=== PATIENT | male | born 1960 | race Caucasian/White ===

== ENCOUNTER 2016-11-15 10:12 | Emergency (ER) | payer MEDICAID ==
[2016-11-15] MEDS ORDERED: KETOROLAC 60 MG/2 ML VIAL IM STA (10:38)
[2016-11-15] MEDS ORDERED: DEXAMETHASONE 10 MG/ML VIAL PO STA (10:39)
[2016-11-15] MEDS ORDERED: DEXAMETHASONE 10 MG/ML VIAL ONE (10:41)
[2016-11-15] MEDS ORDERED: CHERRY SYRUP 10 ML UDC PO ONE (10:41)
[2016-11-15] MEDS ORDERED: KETOROLAC 60 MG/2 ML VIAL ONE (10:41)
--- NOTE | 2016-11-15 10:41 | ED Physician Documentation ---
PD HPI BACK PAIN - Stated complaint Stated Complaint: BACK INJURY - Chief complaint Chief Complaint: Back Pain - History obtained from History obtained from: Patient - History of Present Illness Timing - onset: Yesterday Timing - details: Still present Location: Lower Quality: Pain Associated symptoms: No: Fever, Weakness, Numbness, Incontinent of urine Worsened by: Movement, Twisting Contributing factors: Lifting Similar symptoms before: Diagnosis (History of similar symptoms, with "bulging discs.") - Additional information Additional information: The patient is a 56-year-old male who presents with low back pain. The pain started yesterday after carrying a heavy roll of carpet upstairs. He felt a "pop " in his lower back. He reports history of similar symptoms occasionally in the past. He states he has been diagnosed with "2 bulging discs." He denies fever, numbness or weakness, or urinary incontinence. Review of Systems Constitutional: denies: Fever Nose: denies: Congestion Throat: denies: Sore throat Cardiac: denies: Chest pain / pressure Respiratory: denies: Dyspnea GI: denies: Abdominal Pain, Nausea, Vomiting : denies: Dysuria, Incontinent Skin: denies: Rash Musculoskeletal: reports: Back pain. denies: Neck pain Neurologic: denies: Focal weakness, Numbness, Headache PD PAST MEDICAL HISTORY - Past Medical History Past Medical History: Yes Neuro: None Endocrine/Autoimmune: None Other Past Medical History: "bulging discs" - Past Surgical History Past Surgical History: Yes Ortho: Knee replacement - Present Medications Home Medications: Ambulatory Orders Medication Instructions Recorded Confirmed Cyclobenzaprine [Flexeril] 10 mg PO TID PRN #20 tablet 11/15/16 HYDROcod/ACETAM 5/325 [[place] 5/325] 1 - 2 ea PO Q6H PRN #20 tablet 11/15/16 - Allergies Allergies/Adverse Reactions: Allergies Allergy/AdvReac Type Severity Reaction Status Date / Time No Known Drug Allergies Allergy Verified 11/15/16 10:19 - Social History Does the pt smoke?: No Smoking Status: Never smoker Does the pt drink ETOH?: Yes Does the pt have substance abuse?: No - Immunizations Immunizations are current?: Yes - POLST Patient has POLST: No PD ED PE NORMAL - Vitals Vital signs reviewed: Yes (mild hypertension initia) - General General: Well developed/nourished - HEENT HEENT: Atraumatic - Neck Neck: No bony TTP - Cardiac Cardiac: RRR - Respiratory Respiratory: No respiratory distress, Clear bilaterally - Abdomen Abdomen: Soft, Non tender - Back Back: No CVA TTP, Other (There is tenderness to palpation in the lower lumbar region and paralumbar musculature bilaterally.) - Derm Derm: No rash - Extremities Extremities: No edema, No calf tenderness / cord, Other (Straight leg raise test is negative bilaterally.) - Neuro Neuro: Alert and oriented X 3, No motor deficit, No sensory deficit, Other ( Deep tendon reflexes are 2+ and equal bilaterally at the patellar and Achilles tendons.) Results - Vitals Vitals: Oxygen O2 Source Room air PD MEDICAL DECISION MAKING - ED course Complexity details: re-evaluated patient, considered differential, d/w patient ED course: The patient's presentation of low back pain is most consistent with lumbar strain. His presentation does not suggest epidural abscess, spinal stenosis, or cauda equina syndrome. Treatment in the emergency department included administration of ketorolac 60 mg IM and dexamethasone 10 mg orally. He is being discharged with a prescription for Flexeril and for Vicodin, 20 tablets. I discussed with him the expected course of injury, symptomatic treatment and outpatient follow-up, as well as potentially worrisome signs or symptoms that should prompt reevaluation in the emergency department. Departure - Departure Disposition: 01 Home, Self Care Clinical Impression: Low back pain Qualifiers: Chronicity: acute Back pain laterality: bilateral Sciatica presence: without sciatica Qualified Code(s): M54.5 - Low back pain Condition: Stable Instructions: ED Low Back Pain Injury Follow-Up: [facility] [Provider Group] Prescriptions: Cyclobenzaprine [Flexeril] 10 mg PO TID PRN #20 tablet PRN Reason: Spasms HYDROcod/ACETAM 5/325 [[place] 5/325] 1 - 2 ea PO Q6H PRN #20 tablet PRN Reason: Pain Comments: Apply icepack to your lower back intermittently for the next 3 or 4 days. You can use ibuprofen, up to 800 mg 3 times daily for its anti-inflammatory effect. You can use Vicodin as prescribed if needed for pain. You can use Flexeril as prescribed if needed for muscle spasms. Let pain be your guide to activity level. Follow up with your primary physician within 2 weeks. Call to schedule an appointment. Return to the emergency department if you develop increasing pain, numbness or weakness, urinary incontinence, or otherwise worsening symptoms. Discharge Date/Time: 11/15/16 11:26
[2016-11-15 11:28] VITALS: BP 156/96
== END 2016-11-15 11:26 | disposition home or self-care (01) ==
LOC: ED 10:12
DX: M54.5 Low back pain (principal); X50.0XXA Overexertion from strenuous movement or load, initial encounter
CPT/HCPCS: 96372; 99283; A9270

== ENCOUNTER 2018-09-29 16:20 | Emergency (ER) | payer MEDICAID ==
[2018-09-29 16:26] VITALS: BP 118/80
[2018-09-29] MEDS ORDERED: IBUPROFEN 800 MG TABLET PO STA (16:46)
--- NOTE | 2018-09-29 16:47 | ED Physician Documentation ---
PD HPI LOWER EXT INJURY - Stated complaint Stated Complaint: LT ANKLE PAIN - Chief complaint Chief Complaint: Ext Problem - History obtained from History obtained from: Patient - History of Present Illness PD HPI LOW EXT INJURY LOCATION: Left, Ankle Type of injury: Twist Where injury occurred: Other (getting off his boat 2 days ago, increased pain yesterday and today.) Timing - onset: How many days ago (2) Timing - duration: Days (2) Timing - details: Gradual onset Pain level max: 6 Pain level now: 5 Improved by: Rest Worsened by: Moving, Palpating Associated symptoms: No: Weakness, Numbness, Tingling, Swelling Contributing factors: No: Anticoagulated, Prior ortho surgery Similar symptoms before: Has not had sx before Recently seen: Not recently seen Review of Systems Constitutional: denies: Fever Skin: denies: Rash Musculoskeletal: denies: Neck pain, Back pain Neurologic: denies: Headache, Head injury PD PAST MEDICAL HISTORY - Past Medical History Past Medical History: No Endocrine/Autoimmune: None - Past Surgical History Past Surgical History: Yes Ortho: Knee replacement - Present Medications Home Medications: Ambulatory Orders Medication Instructions Recorded Confirmed Hydrocodone/Acetaminophen 1 - 2 each PO Q6H PRN #10 tablet 09/29/18 [Hydrocodon-Acetaminophen 5-325] Ibuprofen [Motrin] 800 mg PO Q8H PRN #30 tablet 09/29/18 - Allergies Allergies/Adverse Reactions: Allergies Allergy/AdvReac Type Severity Reaction Status Date / Time No Known Drug Allergies Allergy Verified 09/29/18 16:26 - Social History Does the pt smoke?: No Smoking Status: Never smoker Does the pt drink ETOH?: Yes Does the pt have substance abuse?: No - Immunizations Immunizations are current?: Yes - POLST Patient has POLST: No PD ED PE NORMAL - Vitals Vital signs reviewed: Yes - General General: Alert and oriented X 3, No acute distress - Derm Derm: Warm and dry - Extremities Extremities: Other (LLE - mild swelling L ankle. NVI. TTP lateral malleolus. normal exam of the foot. ) - Neuro Neuro: Alert and oriented X 3 - Psych Psych: Normal mood, Normal affect Results - Vitals Vitals: Vital Signs - 24 hr 09/29/18 16:22 Temperature 37 C Heart Rate 108 H Respiratory 18 Rate Blood Pressure 118/80 O2 Saturation 94 Oxygen O2 Source Room air - Rads (name of study) Left ankle x-ray Radiology: Prelim report reviewed, EMP read contemporaneously, See rad report (No acute abnormality) PD MEDICAL DECISION MAKING - ED course Complexity details: reviewed results, re-evaluated patient, considered differential, d/w patient ED course: 58-year-old male with a left ankle sprain. Placed in a gel splint. Has crutches at home. No evidence of fracture. Normal foot x-ray. Patient counseled regarding signs and symptoms for which I believe and urgent re- evaluation would be necessary. Patient with good understanding of and agreement to plan and is comfortable going home at this time This document was made in part using voice recognition software. While efforts are made to proofread this document, sound alike and grammatical errors may occur. Departure - Departure Disposition: 01 Home, Self Care Clinical Impression: Left ankle sprain Qualifiers: Encounter type: initial encounter Involved ligament of ankle: unspecified ligament Qualified Code(s): S93.402A - Sprain of unspecified ligament of left ankle, initial encounter Condition: Good Instructions: ED Sprain Ankle Follow-Up: Your,doctor in 1 week [Other] Prescriptions: Hydrocodone/Acetaminophen [Hydrocodon-Acetaminophen 5-325] 1 - 2 each PO Q6H PRN #10 tablet PRN Reason: pain Ibuprofen [Motrin] 800 mg PO Q8H PRN #30 tablet PRN Reason: PAIN &/OR FEVER Comments: Use crutches at home to help with ambulation. Return if you worsen. Follow-up with your doctor if still having pain in 1 week. Wear the brace as needed for comfort, it should be feeling better within a week or so. Do not drink alcohol or drive while on narcotic pain medicine. Note that many narcotic pain relievers also contain tylenol/acetaminophen. Please ensure that your total dose of acetaminophen from all sources does not exceed 3 grams (3000mg) per day. You may constipated on this medication, take a stool softener such as "Colace" twice a day while you are on it. Also recommend a rykv-cyn-xixqhaq laxative such as senna or MiraLAX any day that you do not have a bowel movement. If you received narcotic pain medication in the emergency department, do not drive or operate machinery for the next 24 hours. Forms: Activity restrictions Discharge Date/Time: 09/29/18 17:40
--- NOTE | 2018-09-29 16:55 | XRAY Report ---
Reason: unable to bear weight after injury Procedure Date: 09/29/2018 Accession Number: [id number] / [id number] Procedure: XR - Ankle 3 View LT CPT Code: FULL RESULT: EXAM: LEFT ANKLE RADIOGRAPHY EXAM DATE: 09/29/2018 04:44 PM. CLINICAL HISTORY: Unable to bear weight after injury. COMPARISON: None. TECHNIQUE: 3 views. FINDINGS: Bones: Normal. No fractures or bone lesions. Joints: Normal. No effusion. No subluxations. The ankle mortise is normally aligned. Soft Tissues: There is mild lateral ankle soft tissue swelling. IMPRESSION: No acute fracture or subluxation. RADIA
== END 2018-09-29 17:40 | disposition home or self-care (01) ==
LOC: ED 16:20
DX: S93.402A Sprain of unspecified ligament of left ankle, initial encounter (principal); X50.1XXA Overexertion from prolonged static or awkward postures, initial encounter; Y93.19 Activity, other involving water and watercraft; Y92.814 Boat as the place of occurrence of the external cause
CPT/HCPCS: 73610; 99283; A9270

== ENCOUNTER 2018-12-25 09:48 | Emergency (ER) | payer MEDICAID ==
--- NOTE | 2018-12-25 10:21 | XRAY Report ---
Reason: pain/swelling. rolled L ankle yesterday Procedure Date: 12/25/2018 Accession Number: [id number] / [id number] Procedure: XR - Ankle 3 View LT CPT Code: FULL RESULT: EXAM: LEFT ANKLE RADIOGRAPHY EXAM DATE: 12/25/2018 10:11 AM. CLINICAL HISTORY: Pain/swelling. rolled L ankle yesterday. COMPARISON: ANKLE 3 VIEW LT 09/29/2018 4:36 PM CALCANEUS LT 12/25/2015 3:21 PM. TECHNIQUE: 3 views. FINDINGS: Bones: There is some cortical irregularity along the medial talus inferior to the medial malleolus on the frontal plafond view. Joints: Normal. No effusion. No subluxations. The ankle mortise is normally aligned. Soft Tissues: Peripheral vascular calcifications. N soft tissue swelling. IMPRESSION: 1. Cortical irregularity medial talus inferiorly just below the medial malleoli are level. If patient tender at this location consider further CT or MRI RADIA
[2018-12-25] MEDS ORDERED: oxyCODONE 5 MG TABLET PO STA (11:40)
[2018-12-25] MEDS ORDERED: ACETAMINOPHEN 325 MG TABLET PO STA (11:40)
--- NOTE | 2018-12-25 12:29 | CT Report ---
Reason: Left ankle pain and cortical irregular Procedure Date: 12/25/2018 Accession Number: [id number] / [id number] Procedure: CT - LOWER EXTREMITY WO - LT CPT Code: FULL RESULT: EXAM: LEFT KNEE CT WITHOUT CONTRAST EXAM DATE: 12/25/2018 12:05 PM. CLINICAL HISTORY: Left ankle pain and cortical irregularity. COMPARISON: ANKLE 3 VIEW LT 12/25/2018 9:56 AM. TECHNIQUE: Thin-section axial images were acquired of the knee without contrast. Post-processing: Coronal and sagittal reformats. Other: None. In accordance with CT protocol optimization, one or more of the following dose reduction techniques were utilized for this exam: automated exposure control, adjustment of mA and/or KV based on patient size, or use of iterative reconstructive technique. FINDINGS: Bones and articular surfaces: Ankle mortise appears intact. Mild joint space narrowing and marginal osteophytes at the tibiotalar articulation. 2 punctate calcifications are seen at the medial tibiotalar joint space. Additional punctate calcification at the anterolateral margin of the tibiotalar articulation. Punctate calcifications at the tip of the lateral malleolus. No definite acute fractures are identified. No evidence of an acute talus fracture. Marginal osteophytes at the posterior subtalar joint. Mild joint space narrowing and subchondral cyst formation at the calcaneocuboid articulation. Soft tissues: Visualized musculotendinous structures appear grossly intact. No muscle atrophy or fatty replacement. Vascular calcifications. IMPRESSION: 1. Mild tibiotalar and posterior subtalar osteoarthritis. 2. No talus fracture identified. 3. 3 punctate calcifications within the tibiotalar joint space may reflect tiny loose bodies. 4. Punctate calcifications at the inferior margin of the lateral malleolus may represent tiny avulsion fragments of indeterminate age. RADIA
--- NOTE | 2018-12-25 13:39 | ED Physician Documentation ---
History of Present Illness - Stated complaint Stated Complaint: LEFT ANKLE PX - Chief complaint Chief Complaint: Trauma Ext - Additonal information Additional information: This is a 58 year old male who presents with left ankle pain after an inversion injury while exercising yesterday. His ankle has become increasingly swollen, and he has been ambulating with crutches as he is unable to bear weight. The pain is moderate at rest, severe with movement or pressure, and located over the anterior joint line and lateral malleolar region. Review of Systems Constitutional: denies: Fever Respiratory: denies: Dyspnea Skin: reports: Other (ankle bruising) Musculoskeletal: reports: Extremity pain Neurologic: denies: Generalized weakness PD PAST MEDICAL HISTORY - Past Medical History Past Medical History: Yes Endocrine/Autoimmune: None - Past Surgical History Past Surgical History: Yes Ortho: Knee replacement - Present Medications Home Medications: Ambulatory Orders Medication Instructions Recorded Confirmed Hydrocodone/Acetaminophen 1 - 2 each PO Q6H PRN #10 tablet 12/25/18 [Hydrocodon-Acetaminophen 5-325] RX: Ibuprofen [Ibu] 400 mg PO Q6HR PRN 14 Days #30 12/25/18 tablet - Allergies Allergies/Adverse Reactions: Allergies Allergy/AdvReac Type Severity Reaction Status Date / Time No Known Drug Allergies Allergy Verified 12/25/18 09:53 - Social History Does the pt smoke?: No Smoking Status: Never smoker Does the pt drink ETOH?: Yes Does the pt have substance abuse?: No - Immunizations Immunizations are current?: Yes - POLST Patient has POLST: No PD ED PE NORMAL - Vitals Vital signs reviewed: Yes - General General: Alert and oriented X 3 - Cardiac Cardiac: RRR - Respiratory Respiratory: No respiratory distress - Abdomen Abdomen: Non distended - Derm Derm: Warm and dry - Extremities Extremities: Other (Left ankle has ecchymosis along the lateral aspect. There is tenderness along the anterior joint line and region of the ATF/distal lateral malleolus tip. Flexion and extension are possible but limited by pain. Excellent capillary refill, SILT over entire foot.) - Neuro Neuro: Alert and oriented X 3 - Psych Psych: Normal mood, Normal affect Results - Vitals Vitals: Oxygen O2 Source Room air PD MEDICAL DECISION MAKING - ED course Complexity details: considered differential (sprain, strain, avulsion fracture, fracture, dislocation) ED course: On exam patient is non-toxic. His affected extremity is neurovascularly intact, however ROM is limited by pain. XR shows a small avulsion fragment, no other acute fracture. Given that patient has likely had a severe ankle sprain with a small avulsion fracture, he was placed in a walking boot and instructed to remain in the boot when out of bed and to continue to use his crutches. He should follow up with orthopedics or sports medicine in a week, and perform RICE therapy until then. I prescribed analgesics with instructions on their use. Return precautions discussed. Patient was discharged home. Departure - Departure Disposition: , Self Care Clinical Impression: Ankle injury Condition: Good Instructions: ED Sprain Ankle Follow-Up: Your,Primary Care Provider [Other] (Follow up with your PCP or sports medicine/orthopedics in 1-2 weeks) Macario Abdul MD [Provider Admit Priv/Credential] - (For follow up on ankle sprain/avulsion fracture) Prescriptions: RX: Ibuprofen [Ibu] 400 mg PO Q6HR PRN 14 Days #30 tablet PRN Reason: Pain Hydrocodone/Acetaminophen [Hydrocodon-Acetaminophen 5-325] 1 - 2 each PO Q6H PRN #10 tablet PRN Reason: pain Comments: You were seen today for ankle pain. It appears that you have a severe ankle sprain with a small avulsion fracture. Please wear the walking boot when out of bed and continue to use crutches. Follow-up with your primary care provider or with orthopedics for continued follow-up. Return to the emergency department if you develop new or worsening symptoms. Discharge Date/Time: 12/25/18 13:52
[2018-12-25 13:52] VITALS: BP 150/88
== END 2018-12-25 13:52 | disposition home or self-care (01) ==
LOC: ED 09:48
DX: S99.912A Unspecified injury of left ankle, initial encounter (principal); X50.1XXA Overexertion from prolonged static or awkward postures, initial encounter; Y93.89 Activity, other specified
CPT/HCPCS: 73610; 73700; 99284; A9270

== ENCOUNTER 2020-01-06 10:16 | Day surgery (SDC) | payer MEDICAID ==
[2020-01-06] MEDS ORDERED: LACTATED RINGERS 1,000 ML IV ONE ×2 (10:18→12:47)
[2020-01-06] MEDS ORDERED: MIDAZOLAM 2 MG/2 ML VIAL IVP ONE (12:23)
[2020-01-06] MEDS ORDERED: fentaNYL 250 MCG/5 ML VIAL IVP ONE (12:23)
[2020-01-06 13:27] VITALS: BP 145/89
== END 2020-01-06 10:17 | disposition home or self-care (01) ==
LOC: SDS 10:16
PROVIDERS: ATTEND Surgery
DX: Z12.11 Encounter for screening for malignant neoplasm of colon (principal); I10 Essential (primary) hypertension; F17.290 Nicotine dependence, other tobacco product, uncomplicated
CPT/HCPCS: 45378; J3010; J7120

== ENCOUNTER 2020-02-17 07:33 | Outpatient (CLI) | payer OTHER, MEDICAID ==
--- NOTE | 2020-02-17 09:58 | XRAY Report ---
PROCEDURE: Finger(s) LT INDICATIONS: LEFT MIDDLE FINGER FRACTURE TECHNIQUE: 3 views of the third finger(s) acquired. COMPARISON: 01/27/2020 FINDINGS: Bones: Again noted is slightly displaced fracture involving dorsal aspect of third distal phalangeal base with fracture line extending to the third distal interphalangeal joint space and up to 2 mm ambriz tases at fracture site, increased from 1.5 mm on previous study. No new fracture or dislocation. No s uspicious bony lesions. Soft tissues: No suspicious soft tissue calcifications. IMPRESSION: Interval slight increase of diastases at the third distal phalangeal base fracture site as above. No new fracture or dislocation. Reviewed by: Guerrero Waite MD on 02/17/2020 9:57 AM PDT Approved by: Guerrero Waite MD on 02/17/2020 9:57 AM PDT Station ID: [id number]
== END 2020-02-17 07:34 | disposition home or self-care (01) ==
LOC: DI.WCP 07:33
PROVIDERS: ATTEND Orthopaedic Surgery
DX: S62.633A Displaced fracture of distal phalanx of left middle finger, initial encounter for closed fracture (principal)
CPT/HCPCS: 73140

== ENCOUNTER 2020-02-18 11:54 | Day surgery (SDC) | payer OTHER, MEDICAID ==
[2020-02-18] MEDS ORDERED: fentaNYL 100 MCG/2 ML VIAL IVP ONE (11:55)
[2020-02-18] MEDS ORDERED: MIDAZOLAM 2 MG/2 ML VIAL IVP ONE (11:55)
[2020-02-18] MEDS ORDERED: PROPOFOL 200 MG/20 ML VIAL IVP ONE (11:55)
[2020-02-18] MEDS ORDERED: CEFAZOLIN SODIUM IN 0.9 % NACL 2 GM/100 ML BAG IV ONE (12:09)
[2020-02-18] MEDS ORDERED: LACTATED RINGERS 1,000 ML IV ONE ×2 (12:24→16:58)
--- NOTE | 2020-02-18 13:07 | ANESTHESIA ---
Pre-Anesthesia VS, & Labs - Diagnosis left third distal phalanx fracture - Procedure closed reduction of left 3rd distal phalanx with percutaneous pinning Vital Signs: Temp Pulse Resp BP Pulse Ox 36 C L 95 16 154/103 H 97 02/18/20 12:26 02/18/20 12:26 02/18/20 12:26 02/18/20 12:26 02/18/20 12:26 Height: 5 ft 11 in Weight (kg): 91.9 kg Body Mass Index: 28.2 BMI Classification: Overweight - NPO >8 hours Home Medications and Allergies Lisinopril [Prinivil] 10 mg PO DAILY 01/05/20 Simvastatin [Zocor] 10 mg PO DAILY 01/05/20 Allergies/Adverse Reactions: Allergies Allergy/AdvReac Type Severity Reaction Status Date / Time No Known Drug Allergies Allergy Verified 01/27/20 12:21 Anes History & Medical History - Anesthetic History Anesthesia Complications: reports: No previous complications - Medical History Cardiovascular: reports: Hypertension, High cholesterol Pulmonary: reports: None Gastrointestinal: reports: None Urinary: reports: None Neuro: reports: None Musculoskeletal: reports: None Endocrine/Autoimmune: reports: None Blood Disorders: reports: None Skin: reports: None Smoking Status: Never smoker Psychosocial: reports: No issues indicated History of Cancer?: No - Surgical History General: Colonoscopy, Other Orthopedic: Arthroscopic surgery Exam General: Alert, Oriented x3, Cooperative, No acute distress Dental: Partials Upper Mouth Openin Fingerbreadth Neck Mobility: Normal Mallampati classification: II Thyromental Distance: greater than 6 cm Respiratory: Lungs clear, Normal breath sounds, No respiratory distress, No accessory muscle use Cardiovascular: Regular rate, Normal S1, Normal S2, No murmurs Mental/Cognitive Status: Alert/Oriented X3, Normal for patient Plan Anesthesia Type: MAC Consent for Procedure(s) Verified and Reviewed: Yes Code Status: Attempt Resuscitation ASA classification: 2-Mild systemic disease Is this case an emergency?: No
[2020-02-18] MEDS ORDERED: BUPIVACAINE 0.5% PF 30 ML VIAL ONE (16:07)
[2020-02-18] MEDS ORDERED: LIDOCAINE 1% 50 ML MDV ONE (16:07)
[2020-02-18] MEDS ORDERED: LIDOCAINE 1% 50 ML MDV SUBQ ONE (16:30)
[2020-02-18] MEDS ORDERED: BUPIVACAINE 0.25% PF 30 ML VIAL SUBQ ONE (16:31)
[2020-02-18] MEDS ORDERED: HYDROmorphone 0.5 MG/0.5 ML SYRINGE IVP PRN (16:49)
[2020-02-18] MEDS ORDERED: NALOXONE 0.4 MG/ML VIAL IVP PRN (16:49)
[2020-02-18] MEDS ORDERED: MORPHINE 2 MG/ML CARPUJECT IVP PRN (16:49)
[2020-02-18] MEDS ORDERED: fentaNYL 100 MCG/2 ML VIAL IVP PRN (16:49)
[2020-02-18] MEDS ORDERED: ONDANSETRON 4 MG/2 ML VIAL IVP PRN (16:49)
[2020-02-18] MEDS ORDERED: ATROPINE ABBOJECT 1 MG/10 ML SYRINGE IVP PRN (16:49)
[2020-02-18] MEDS ORDERED: LACTATED RINGERS 1,000 ML IV SCH (17:00)
--- NOTE | 2020-02-18 17:06 | OPERATIVE REPORT ---
Operative Report - General Procedure Date: 02/18/20 Planned Procedure: Closed reduction percutaneous pinning left third distal phalanx fracture Pre-Op Diagnosis: Displaced articular distal phalanx fracture, mallet deformity, left third f Procedure Performed: Close reduction percutaneous pinning distal phalanx left third finger Post Op Diagnosis: Same as preoperative diagnosis - Procedure Note Primary Surgeon: Iván Hayes M.D. Anesthesia Provider: Mckay Euceda M.D. Anesthesia Technique: MAC Estimated Blood Loss (mL): 1 Indications: This is a 59-year-old man sustained a work-related injury to his left third fingertip. He sustained a mallet type injury to the dorsal aspect of the distal phalanx. He tried conservative treatment in the form of a staxFinger splint to immobilize the distal interphalangeal joint in full extension.. He was not compliant hand was bending his finger tip inadvertently when removing the splint. He had displacement of the fracture during the initial treatment with articular disruption of the least 2 or more millimeters, joint incongruity and a hint of subtle subluxation. For this reason, he elected to undergo K wire stabilization of the distal interphalangeal joint and fracture to the left third finger. Findings: The dorsal articular fracture of the third finger distal phalanx was greater than one third and probably close to 50% of the articular surface. There was some incongruency to the joint and a defect within the joint of at least 2 mm. Complications: None noted - Other Other Information/Narrative: The patient was brought to the operating room table, placed in a supine position with the left arm over a arm table. A C-arm image intensifier was utilized and a sterile drape was applied to the head of the C arm. The left upper extremity was prepped and draped in a sterile manner in the usual fashion. A timeout procedure was performed by the entire operating room team and all were in agreement. The surgeon performed a distal metacarpal block to the left third finger using a mixture of 1% Xylocaine and half percent Marcaine, both without epinephrine. A 50-50 mixture was utilized and a total of 15 cc was injected. Traction was applied with a towel clamp to bone. A 0.045 K wire was inserted dorsal to volar engaging the dorsal articular fracture and the second K wire was inserted from the tip of the distal phalanx to transfix the distal interphalangeal joint of the left third finger. The C arm showed satisfactory alignment of pin fixation and fracture alignment. The ends of the pins were cut and capped with sterile balls. A dry sterile dressing was applied to the left third finger. He tolerated the procedure well
[2020-02-18 17:12] VITALS: BP 141/102
--- NOTE | 2020-02-18 17:13 | Discharge Plan ---
Discharge Plan Problem Reviewed?: Yes Disposition: Home, Self Care Condition: Good Prescriptions: Hydrocodone/Acetaminophen [[place] 5-325 Tablet] 1 each PO Q6HR #7 tablet Diet: Regular Activity Restrictions: elevate left hand Shower Restrictions: Yes (may remove dressing tomorrow; keep pins clean) Driving Restrictions: No Weight Bearing: Full Weight Plan of Treatment: K wire stabilization of 3rd finger distal phalangeal fracture Assessment: stable, doing well Additional Instructions or Follow Up instructions: may move all fingers, elevate hand No Smoking: If you smoke, Please STOP! Call for help. Follow-up with: Iván Hayes MD [Provider Admit Priv/Credential] - ZANDRA GALVAN, MSN, MECH[employer]ICAL DOOR REPAIRER [Primary Care Provider] -
--- NOTE | 2020-02-18 17:25 | XRAY Report ---
PROCEDURE: OR C-Arm Procedure INDICATIONS: closed reduction/pinning finger TECHNIQUE: 2 views of the left third finger(s) acquired. COMPARISON: 01/27/2012 FINDINGS: Bones: Postsurgical changes compatible with pain of dorsal plate fracture involving the base of the t hird distal phalange. Soft tissues: No suspicious soft tissue calcifications. IMPRESSION: Status post pinning of third distal phalange fracture. Reviewed by: Jyotsna Knox MD, PhD on 02/18/2020 5:23 PM PDT Approved by: Jyotsna Knox MD, PhD on 02/18/2020 5:23 PM PDT Station ID: [id number]
[2020-02-18] MEDS ORDERED: HYDROcod/ACETAM 5/325 MG TABLET PO PRN (17:29)
[2020-02-18] MEDS ORDERED: KETOROLAC 15 MG/ML VIAL IVP STA (17:29)
[2020-02-18] MEDS ORDERED: HYDROcod/ACETAM 10 MG/325 MG TABLET PO PRN (17:29)
== END 2020-02-18 11:55 | disposition home or self-care (01) ==
LOC: SDS 11:54
PROVIDERS: ATTEND Orthopaedic Surgery
DX: S62.633A Displaced fracture of distal phalanx of left middle finger, initial encounter for closed fracture (principal); I10 Essential (primary) hypertension; F17.220 Nicotine dependence, chewing tobacco, uncomplicated
CPT/HCPCS: 26756; C1713; J0690; J7120

== ENCOUNTER 2020-03-16 11:58 | Outpatient (CLI) | payer OTHER, MEDICAID ==
--- NOTE | 2020-03-16 12:03 | XRAY Report ---
PROCEDURE: Finger(s) LT INDICATIONS: LEFT 3RD FINGER FRACTURE TECHNIQUE: AP hand, 3 views of the left middle finger(s) acquired. COMPARISON: 02/17/2020 and 01/27/2020 FINDINGS: Bones: Status post percutaneous pin fixation of the left middle finger across the distal interphalan geal joint. No evidence for hardware complication. The dorsal fracture fragment at the base of the di stal phalanx demonstrates persistent diastases measuring approximately 3 mm. This is relatively stabl e compared to previous fixation radiographs dated 02/17/2020. There is overlying soft tissue edema. No fractures or dislocations. No suspicious bony lesions. Soft tissues: No suspicious soft tissue calcifications. IMPRESSION: Status post percutaneous pin fixation of the left middle finger across the distal interphalangeal watson nt. Persistent diastases of the dorsal fracture fragment at the base of the distal phalanx. No hardwa re complication noted. Reviewed by: Jose Guadalupe Byers MD on 03/16/2020 12:02 PM PDT Approved by: Jose Guadalupe Byers MD on 03/16/2020 12:02 PM PDT Station ID: [id number]
== END 2020-03-16 23:59 | disposition home or self-care (01) ==
LOC: DI.WCP 11:58
PROVIDERS: ATTEND Orthopaedic Surgery
DX: S62.633D Displaced fracture of distal phalanx of left middle finger, subsequent encounter for fracture with routine healing (principal)
CPT/HCPCS: 73140

== ENCOUNTER 2020-04-10 11:03 | Outpatient (CLI) | payer OTHER, MEDICAID ==
--- NOTE | 2020-04-10 11:07 | XRAY Report ---
PROCEDURE: Finger(s) LT INDICATIONS: DISPLACED FX OF L 3RD DISTAL PHALANX TECHNIQUE: AP hand, 3 views of the there finger(s) acquired. COMPARISON: X-ray finger 01/27/2020, 03/16/2020 FINDINGS: Bones: There is been interval removal of third DIP joint pin fixation. There is interval healing wit h persistent appearance of third distal phalanx base fracture with posterior displacement of fragment . No suspicious bony lesions. Soft tissues: No suspicious soft tissue calcifications. IMPRESSION: Healing appearance of distal third phalanx fracture with persistent posterior displacement of fractur e fragment. Reviewed by: Diana Rouse MD on 04/10/2020 11:05 AM PST Approved by: Diana Rouse MD on 04/10/2020 11:05 AM PST Station ID: [id number]
== END 2020-04-10 23:59 | disposition home or self-care (01) ==
LOC: DI.N 11:03
PROVIDERS: ATTEND Orthopaedic Surgery
DX: S62.633A Displaced fracture of distal phalanx of left middle finger, initial encounter for closed fracture (principal)

== ENCOUNTER 2021-02-12 14:07 | Outpatient (CLI) | payer MEDICAID | END 2021-02-12 14:08 | disposition home or self-care (01) | LOC: COV 14:07 | PROVIDERS: ATTEND Family Medicine | DX: Z20.822 Contact with and (suspected) exposure to COVID-19 (principal) ==